=== PATIENT | male | born 1960 | race Caucasian/White ===

== ENCOUNTER 2024-05-20 06:34 | Day surgery (SDC) | payer MEDICARE, OTHER, SELFPAY | END 2024-05-20 17:20 | disposition home or self-care (01) | LOC: GI 06:34 | PROVIDERS: ATTENDING PHYSICIAN Internal Medicine | DX: Z12.11 Encounter for screening for malignant neoplasm of colon (principal); Z80.0 Family history of malignant neoplasm of digestive organs | CPT/HCPCS: G0121 ==

== ENCOUNTER → 2024-12-30 14:01 | Outpatient (REF) | payer MEDICARE, OTHER, SELFPAY | LOC: HWRCS 14:01 | PROVIDERS: ATTENDING PHYSICIAN Nurse Practitioner Adult Health | DX: R01.1 Cardiac murmur, unspecified (principal) | CPT/HCPCS: 93306 ==